=== PATIENT | male | born 1975 | race Two or more races ===

== ENCOUNTER → 2020-09-30 | Outpatient (CLI) | payer OTHER | LOC: RAD 10:34 | PROVIDERS: ATTEND Internal Medicine | DX: Z00.00 Encounter for general adult medical examination without abnormal findings (principal) | CPT/HCPCS: 71046 ==

== ENCOUNTER → 2021-12-03 | Outpatient (CLI) | payer OTHER | LOC: RAD 11:19 | PROVIDERS: ATTEND Internal Medicine | DX: G47.33 Obstructive sleep apnea (adult) (pediatric) (principal) | CPT/HCPCS: 71046 ==